=== PATIENT | female | born 1955 | race Caucasian/White ===

== ENCOUNTER 2016-12-10 07:51 | Day surgery (SDC) | payer BC ==
[2016-12-08 17:59] VITALS: BMI 34.0
[~2016-12-10 07:51] MED LIST: LACTATED RINGERS 1,000 ML IV SCH
[2016-12-10 08:21] VITALS: TEMP 98.1
[2016-12-10] MEDS ORDERED: LIDOCAINE 1% 20 ML VIAL (10MG/ML) FOR IV START INTRADERMA ONE (08:26)
[2016-12-10] MEDS ORDERED: LIDOCAINE 1% INJ 10MG/ML (20 ML MDV) ONE (08:42)
[2016-12-10] MEDS ORDERED: PROPOFOL 10 MG/ML 20 ML VIAL IV ONE (08:42)
--- NOTE | 2016-12-10 09:06 | P.PCN ---
Date of Procedure: 12/10/16 Procedure(s) Performed: Brief history: Patient is a pleasant scheduled for an elective upper endoscopy as well as colonoscopy as a part of evaluation of epigastric pain for the last 2 months duration. She was started on Prilosec 20 mg daily and symptoms and symptoms are gradually improving. She denies any heartburn, dysphagia or odynophagia. She is also scheduled for a screening colonoscopy today. Procedure performed: Esophagogastroduodenoscopy with biopsy Colonoscopy Preoperative diagnosis: Epigastric pain of 2 months duration Screening for colon cancer Anesthesia: MAC Procedure: After informed consent was obtained from the patient was brought into the endoscopy unit and IV conscious sedation was administered by anesthesia under continuous monitoring. Initially upper endoscopy was done. The Olympus GF 160 video endoscope was inserted inserted into the mouth and esophagus intubated without any difficulty and was gradually advanced into the stomach and duodenum and carefully examined. The bulb and second part of the duodenum appeared normal. The scope was then withdrawn into the stomach adequately insufflated with air and upon careful examination the antrum had mild mottling of the mucosa and biopsies were done from this area. The body, cardia and fundus appeared normal. The scope was then withdrawn into the esophagus. small sliding Hiatal hernia noted.The GE junction was located at 38 cm to the incisors. It appeared regular with no erythema erosions or ulcerations. Rest of the esophagus appeared normal. Patient tolerated the procedure well. At this time the patient continued to remain sedation. Initial digital rectal examination was normal. Olympus CF 160 video colonoscope was then inserted into the rectum and gradually advanced to the cecum without any difficulty. Careful examination was performed as the scope was gradually being withdrawn. The prep was excellent. The cecum, ascending colon, transverse colon, descending colon, sigmoid colon and rectum appeared normal. Retroflexion was performed in the rectum and no lesions were noted. Patient tolerated the procedure well. Impression: 1. Upper endoscopy revealed mild gastritis and a small hiatal hernia. 2. Colonoscopy revealed normal appearing colon from rectum to cecum with no evidence of colorectal neoplasia. Recommendations: Findings of this examination were discussed with the patient as well as her family. She was advised to follow with the biopsy results. She was advised to continue with Prilosec 10 mg daily and follow antireflux measures. She can have a repeat screening colonoscopy in 10 years.
[2016-12-10 09:42] VITALS: BP 98/67; PULSE 67; RESP 18
--- NOTE | 2016-12-12 08:14 | CDI ---
Dear Dr. Rudolph, The operative report under Anesthesia documents MAC (Monitored Anesthesia Care) was provided and in the first paragraph under Procedure IV Conscious sedation is documented. Also, on the Anesthesia Record under Technique, MAC is checked off. This is conflicting documentation that needs clarification for proper report purposes. Please clarify if the anesthesia provided Ender Jerome was Conscious sedation or MAC(Monitored Anesthesia Care). Please document this clarification as an addendum to the operative report. Thank you for your time, Erin Mccormick, [facility] Outpatient Train Crew Member Sahil [email or web address] MTDD
--- NOTE | 2016-12-19 07:55 | CDI ---
Dear Dr. Rudolph, The operative report under Anesthesia documents MAC (Monitored Anesthesia Care) was provided and in the first paragraph under Procedure IV Conscious sedation is documented. Also, on the Anesthesia Record under Technique, MAC is checked off. This is conflicting documentation that needs clarification for proper report purposes. Please clarify if the anesthesia provided Ender Pierre was Conscious sedation or MAC(Monitored Anesthesia Care). PLEASE DOCUMENT THIS CLARIFICATION AN ADDENDUM TO THE PROCEDURE NOTE. If you have any further questions. please contact Marcy Mcdonald at [phone] Thank you for your time, Erin Mccormick, [facility] Outpatient Lobster Fisherman [employer] [email or web address] MTDD
== END 2016-12-10 10:00 | disposition home or self-care (01) ==
LOC: ORWHC2ENDO 07:51
PROVIDERS: ATTEND Internal Medicine Gastroenterology
DX: Z12.11 Encounter for screening for malignant neoplasm of colon (principal); K21.9 Gastro-esophageal reflux disease without esophagitis; K44.9 Diaphragmatic hernia without obstruction or gangrene; K29.50 Unspecified chronic gastritis without bleeding; E78.5 Hyperlipidemia, unspecified; Z79.1 Long term (current) use of non-steroidal anti-inflammatories (NSAID); Z79.899 Other long term (current) drug therapy; Z88.8 Allergy status to other drugs, medicaments and biological substances; Z88.1 Allergy status to other antibiotic agents; Z91.040 Latex allergy status
CPT/HCPCS: 88305; 88342; 43239; J2001; J2704; G0121

== ENCOUNTER → 2017-10-12 | Outpatient (CLI) | payer BC ==
--- NOTE | 2017-10-13 09:20 | MM ---
Reason for exam: screening (asymptomatic). Last mammogram was performed 1 year and 3 months ago. History: Patient is postmenopausal. Took hormonal contraceptives for 5 years beginning at age 22. Took estrogen for 11 years beginning at age 42. Took progesterone for 11 years beginning at age 42. Took unspecified hormones for 1 year 6 months. Physical Findings: A clinical breast exam by your physician is recommended on an annual basis and results should be correlated with mammographic findings. MG Screening Mammo w CAD Bilateral CC and MLO view(s) were taken. Prior study comparison: July 22, 2016, bilateral MG screening mammo w CAD. June 29, 2015, bilateral MG screening mammo w CAD. There are scattered fibroglandular densities. Finding: There is a 5 mm mass in the central position of the right breast. ASSESSMENT: Incomplete: need additional imaging evaluation, BI-RAD 0 RECOMMENDATION: Special view mammogram of the right breast. If lesion persists on supplemental views, image directed ultrasound is recommended. [facility] will attempt to contact patient to return for supplemental views and ultrasound if indicated.
== END | disposition home or self-care (01) ==
LOC: RADMAMWWP 10:48
PROVIDERS: ATTEND Obstetrics & Gynecology
DX: Z12.31 Encounter for screening mammogram for malignant neoplasm of breast (principal)
CPT/HCPCS: 77067

== ENCOUNTER → 2017-10-22 | Outpatient (CLI) | payer BC ==
--- NOTE | 2017-10-23 09:25 | MM ---
Reason for exam: additional evaluation requested from abnormal screening. Last mammogram was performed less than 1 month ago. History: Patient is postmenopausal. Took hormonal contraceptives for 5 years beginning at age 22. Took estrogen for 11 years beginning at age 42. Took progesterone for 11 years beginning at age 42. Took unspecified hormones for 1 year 6 months. Physical Findings: Nurse did not find any significant physical abnormalities on exam. MG Work Up Mamm w CAD RT CC, MLO, LM, and spot compression MLO view(s) were taken of the right breast. Prior study comparison: October 12, 2017, bilateral MG screening mammo w CAD. July 22, 2016, bilateral MG screening mammo w CAD. June 29, 2015, bilateral MG screening mammo w CAD. January 18, 2014, bilateral digital screening mammo w/CAD. There are scattered fibroglandular densities. There is no discrete abnormality. The elongated asymmetry disperses on additional views. Findings suggest superimposed vessels. These results were verbally communicated with the patient and result sheet given to the patient on 10/22/17. ASSESSMENT: Negative, BI-RAD 1 RECOMMENDATION: Routine screening mammogram of both breasts in 1 year. Back on schedule, October 2018.
== END | disposition home or self-care (01) ==
LOC: RADMAMWWP 12:55
PROVIDERS: ATTEND Obstetrics & Gynecology
DX: R92.8 Other abnormal and inconclusive findings on diagnostic imaging of breast (principal)
CPT/HCPCS: 77065

== ENCOUNTER → 2018-10-28 | Outpatient (CLI) | payer BC ==
--- NOTE | 2018-10-31 14:34 | MM ---
Reason for exam: screening (asymptomatic). Last mammogram was performed 1 year ago. History: Patient is postmenopausal. Took hormonal contraceptives for 5 years beginning at age 22. Took estrogen for 11 years beginning at age 42. Took progesterone for 11 years beginning at age 42. Took unspecified hormones for 1 year 6 months. MG 3D Screening Mammo W/Cad Bilateral CC and MLO view(s) were taken. Prior study comparison: October 22, 2017, right breast MG work up mamm w CAD RT. October 12, 2017, bilateral MG screening mammo w CAD. There are scattered fibroglandular densities. No significant changes when compared with prior studies. ASSESSMENT: Negative, BI-RAD 1 RECOMMENDATION: Routine screening mammogram of both breasts in 1 year.
== END ==
LOC: RADMAMWWP 10:39
PROVIDERS: ATTEND Obstetrics & Gynecology
DX: Z12.31 Encounter for screening mammogram for malignant neoplasm of breast (principal)
CPT/HCPCS: 77063; 77067

== ENCOUNTER 2021-01-04 10:10 | Day surgery (SDC) | payer MEDICARE ==
[2021-01-02 12:06] VITALS: BMI 36.6
[2021-01-04 10:54] VITALS: RESP 16; TEMP 98.6
[2021-01-04] MEDS ORDERED: LIDOCAINE 1% (10MG/ML) FOR IV START INTRADERMA ONE (11:06)
[2021-01-04] MEDS ORDERED: PROPOFOL 10 MG/ML 20 ML VIAL IV ONE (11:19)
[2021-01-04] MEDS ORDERED: fentaNYL (PF) 50 MCG/ML 2 ML AMP ONE (11:19)
[2021-01-04] MEDS ORDERED: MIDAZOLAM 2 MG/2 ML VIAL ONE (11:19)
--- NOTE | 2021-01-04 11:44 | P.PCN ---
Date of Procedure: 01/04/21 Procedure(s) Performed: Brief history: Patient is a pleasant 65-year-old white female scheduled for an elective upper endoscopy as well as colonoscopy as a part of evaluation of I deficiency anemia. He complains of some epigastric discomfort. History of GERD and has been on Prilosec 20 mg daily. Procedure performed: Esophagogastroduodenoscopy with biopsy Colonoscopy and snare polypectomy Preoperative diagnosis: Iron deficiency anemia and epigastric pain Anesthesia: MAC Procedure: After informed consent was obtained from the patient was brought into the endoscopy unit and IV sedation was administered by anesthesia under continuous monitoring. Initially upper endoscopy was done. The Olympus GF 160 video endoscope was inserted inserted into the mouth and esophagus intubated without any difficulty and was gradually advanced into the stomach and duodenum and carefully examined. The bulb and second part of the duodenum appeared normal. Biopsies were done from the duodenum to rule out celiac disease. The scope was then withdrawn into the stomach adequately insufflated with air and upon careful examination the antrum had mild gastritis and biopsies were done from this area. The body, cardia and fundus appeared normal. The scope was then withdrawn into the esophagus. The GE junction was located at 40 cm to the incisors. It appeared regular with no erythema erosions or ulcerations. Rest of the esophagus appeared normal. Patient tolerated the procedure well. At this time the patient continued to remain sedation. Initial digital rectal examination was normal. Olympus CF 160 video colonoscope was then inserted into the rectum and gradually advanced to the cecum without any difficulty. Careful examination was performed as the scope was gradually being withdrawn. The prep was excellent. The cecum, appeared normal. In the ascending colon there was a 5 mm sessile polyp removed by snare polypectomy. In the hepatic flexure there was a 7 mm polyp removed by snare polypectomy. Rest of the ascending colon, transverse colon, descending colon, sigmoid colon and rectum appeared normal. Retroflexion was performed in the rectum and no lesions were noted. Patient tolerated the procedure well. Impression: 1 Upper endoscopy revealed mild antral gastritis but no evidence of esophagitis or peptic ulcer disease] 2. Colonoscopy revealed 5 mm ascending colon polyp and a 7 mm hepatic flexure polyp both of which were removed by snare polypectomy Recommendations: Findings of this examination were discussed with the patient as well as[ her family. She was advised to follow with the biopsy results. If the biopsy reveals adenoma she can have a repeat colonoscopy in 5 years
[2021-01-04 12:19] VITALS: BP 127/73; PULSE 79
== END 2021-01-04 12:56 | disposition home or self-care (01) ==
LOC: ORWHC2ENDO 10:10
PROVIDERS: ATTEND Internal Medicine Gastroenterology
DX: K63.5 Polyp of colon (principal); K63.89 Other specified diseases of intestine; D12.3 Benign neoplasm of transverse colon; K29.50 Unspecified chronic gastritis without bleeding; D50.9 Iron deficiency anemia, unspecified; K21.9 Gastro-esophageal reflux disease without esophagitis; E78.5 Hyperlipidemia, unspecified; M19.90 Unspecified osteoarthritis, unspecified site; Z79.899 Other long term (current) drug therapy; Z79.1 Long term (current) use of non-steroidal anti-inflammatories (NSAID); Z98.811 Dental restoration status; Z88.1 Allergy status to other antibiotic agents; Z88.6 Allergy status to analgesic agent; Z91.040 Latex allergy status; Z91.018 Allergy to other foods; Z96.653 Presence of artificial knee joint, bilateral; Z90.710 Acquired absence of both cervix and uterus
CPT/HCPCS: 88305; 45385; 43239; J2250; J3010; J2704

== ENCOUNTER → 2021-02-07 | Outpatient (CLI) | payer MEDICARE ==
--- NOTE | 2021-02-07 12:24 | US ---
EXAMINATION TYPE: US abdomen complete DATE OF EXAM: 02/07/2021 COMPARISON: NONE CLINICAL HISTORY: R10.13 Epigastric pain. Pt states epigastric pain and bloating post prandial EXAM MEASUREMENTS: Liver Length: 18.0 cm Gallbladder Wall: 0.2 cm CBD: 0.6 cm Spleen: 8.9 cm Right Kidney: 10.3 x 4.6 x 4.9 cm Left Kidney: 11.2 x 4.9 x 4.9 cm Pancreas: wnl, tail obscured by overlying bowel gas Liver: Enlarged, heterogeneous Gallbladder: wnl Evidence for sonographic Crawford's sign: No CBD: wnl Spleen: wnl Right Kidney: wnl, lobulated lower pole Left Kidney: wnl Upper IVC: wnl Abd Aorta: wnl The visualized liver is heterogeneously hyperechoic. No surrounding ascites. Evaluation for focal ma sses suboptimal due to the heterogeneity. Finding likely on the basis of diffuse fatty infiltration. Underlying hepatocellular disease are not excluded. Correlate clinically. The intrahepatic portion of the IVC and visualized abdominal aorta are within normal limits. There is no evidence of cholelithi asis. Common bile duct is unremarkable. The visualized portions of the pancreas are homogenous. Th e spleen is unremarkable. Kidneys are symmetric and free of hydronephrosis. No renal lesions are se en. IMPRESSION: No acute findings are evident.
== END | disposition home or self-care (01) ==
LOC: RADUSWWP 09:39
PROVIDERS: ATTEND Internal Medicine
DX: R10.13 Epigastric pain (principal)
CPT/HCPCS: 76700

== ENCOUNTER → 2021-03-06 | Outpatient (CLI) | payer MEDICARE ==
--- NOTE | 2021-03-06 14:22 | BD ---
EXAMINATION TYPE: Axial Bone Density DATE OF EXAM: 03/06/2021 COMPARISON: NONE CLINICAL HISTORY: Postmenopausal female Height: 59.5 IN Weight: 192 LBS FRAX RISK QUESTIONS: Secondary Osteoporosis: 3. Menopause before 45: PARTIAL HYST AGE 42 RISK FACTORS HISTORY OF: Active: YES Postmenopausal woman: PARTIAL HYST AGE 42 MEDICATIONS: Additional Medications: CALCIUM, VIT D, TYLENOL, CHOLESTEROL MEDS, MULTI VIT, OMEPRAZOLE EXAM MEASUREMENTS: Bone mineral densitometry was performed using the [employer] System. Bone mineral density as measured about the Lumbar spine is: ----- L1-L4(G/cm2): 1.082 T Score Values are as follows: ----- L2: -1.7 ----- L3: -1.0 ----- L4: -0.2 ----- L1-L4: -0.8 Bone mineral density BASELINE Bone mineral density about the R hip (g/cm2): 0.799 Bone mineral density about the L hip (g/cm2): 0.886 T Score values are as follows: -----R Neck: -1.7 -----L Neck: -1.1 -----R Total: -1.0 -----L Total: -0.4 Bone mineral density BASELINE IMPRESSION: Osteopenia (T Score between -2.5 and -1) femoral neck level in both hips. There is slightly increased risk of fracture and the patient may be considered for treatment. Re-Screen 2-5 years. NOTE: T-SCORE=SD OF THE YOUNG ADULT MEAN.
--- NOTE | 2021-03-08 15:00 | MM ---
Reason for exam: screening (asymptomatic). Last mammogram was performed 2 years and 4 months ago. History: Patient is postmenopausal. Took hormonal contraceptives for 5 years beginning at age 22. Took estrogen for 11 years beginning at age 42. Took progesterone for 11 years beginning at age 42. Took unspecified hormones for 1 year 6 months. Physical Findings: A clinical breast exam by your physician is recommended on an annual basis and results should be correlated with mammographic findings. MG 3D Screening Mammo W/Cad Bilateral CC and MLO view(s) were taken. Prior study comparison: October 28, 2018, bilateral MG 3d screening mammo w/cad. October 22, 2017, right breast MG work up mamm w CAD RT. There are scattered fibroglandular densities. ASSESSMENT: Benign, BI-RAD 2 RECOMMENDATION: Routine screening mammogram of both breasts in 1 year.
== END | disposition home or self-care (01) ==
LOC: RADMAMWWP 12:36
PROVIDERS: ATTEND Internal Medicine
DX: Z12.31 Encounter for screening mammogram for malignant neoplasm of breast (principal); Z13.820 Encounter for screening for osteoporosis; M85.89 Other specified disorders of bone density and structure, multiple sites; Z78.0 Asymptomatic menopausal state
CPT/HCPCS: 77063; 77067; 77080

== ENCOUNTER → 2022-10-14 | Outpatient (CLI) | payer MEDICARE ==
--- NOTE | 2022-10-14 12:28 | XR ---
EXAM TYPE: LUMBAR SPINE X RAY SERIES COMPARISON: NONE HISTORY: Low back pain TECHNIQUE: 4 views are submitted. FINDINGS: Alignment is anatomic. The pedicles are intact. The transverse processes are intact. There is no s pondylolysis or spondylolisthesis. Multilevel facet arthropathy with grade 1 anterolisthesis of L4 a nd L5. Severe from facet arthropathy L4-5 and L5-S1. Vacuum disc and severe degenerative changes L5-S 1 IMPRESSION: 1. Severe degenerative disease L5-S1. 2. Severe facet arthropathy L4-5 and L5-S1 with grade 1 spondylolisthesis L4 on L5 suspected foramina l encroachment at both levels.
== END | disposition home or self-care (01) ==
LOC: RADXRMAIN 12:07
PROVIDERS: ATTEND Internal Medicine
DX: M47.27 Other spondylosis with radiculopathy, lumbosacral region (principal); M43.17 Spondylolisthesis, lumbosacral region
CPT/HCPCS: 72100

== ENCOUNTER → 2022-10-30 | Outpatient (CLI) | payer MEDICARE ==
--- NOTE | 2022-10-31 11:14 | MM ---
Reason for Exam: Screening (asymptomatic). Last mammogram was performed 1 year(s) and 7 month(s) ago. Patient History: Menarche at age 11. First Full-Term at age 23. Hysterectomy at age 28. Postmenopausal. Patient has history of breast feeding. Estrogen, starting at age 42 for 11 years. Progesterone, starting at age 42 for 11 years. Hormonal Contraceptives for 5 years from age 22 until age 27. Unspecified Hormone for 1 year, 6 months. Risk Values: Mattie 5 year model risk: 1.5%. NCI Lifetime model risk: 5.0%. Prior Study Comparison: 07/22/2016 Bilateral Screening Mammogram, [facility]. 10/12/2017 Bilateral Screening Mammogram, [facility]. 10/22/2017 Right Diagnostic Mammogram, [facility]. 10/28/2018 Bilateral Screening Mammogram, [facility]. 03/06/2021 Bilateral Screening Mammogram, [facility]. Tissue Density: There are scattered fibroglandular densities. Findings: Analyzed By CAD. Prominent but benign-appearing left axillary lymph node is redemonstrated. There is no suspicious new group of microcalcifications or new suspicious mass in either breast. Overall Assessment: Benign, BI-RAD 2 Management: Screening Mammogram of both breasts in 1 year. A clinical breast exam by your physician is recommended on an annual basis and results should be correlated with mammographic findings. Electronically signed and approved by: Jesus Carrera M.D.
== END | disposition home or self-care (01) ==
LOC: RADMAMWWP 10:44
PROVIDERS: ATTEND Obstetrics & Gynecology
DX: Z12.31 Encounter for screening mammogram for malignant neoplasm of breast (principal); Z78.0 Asymptomatic menopausal state
CPT/HCPCS: 77063; 77067

== ENCOUNTER → 2024-08-25 | Outpatient (CLI) | payer MEDICARE ==
--- NOTE | 2024-08-25 20:56 | BD ---
EXAMINATION TYPE: Axial Bone Density DATE OF EXAM: 08/25/2024 CLINICAL HISTORY: 69 years old Female. ICD-10 CODE: Z78.0 ASYMPTOMATIC MENOPAUSAL STA , Additional History: Height: 59 Weight: 201 FRAX RISK QUESTIONS: Secondary Osteoporosis: RISK FACTORS HISTORY OF: MEDICATIONS: EXAM MEASUREMENTS: Bone mineral densitometry was performed using the [employer] System. Bone mineral density as measured about the Lumbar spine is: ----- L1-L4(G/cm2): 1.101 T Score Values are as follows: ----- L1: -0.5 ----- L2: -1.7 ----- L3: -1.0 ----- L4: 0.4 ----- L1-L4: -0.7 Z Score Values are as follows: ----- L1: 0.3 ----- L2: -0.9 ----- L3: -0.2 ----- L4: 1.2 ----- L1-L4: 0.1 Bone mineral density has: Increased 1.8% since study of: 03-06-21 Bone mineral density about the R hip (g/cm2): 0.899 Bone mineral density about the L hip (g/cm2): 0.954 T Score values are as follows: -----R Neck: -1.9 -----L Neck: -1.4 -----R Total: -0.9 -----L Total: -0.4 Z Score values are as follows: -----R Neck: -0.8 -----L Neck: -0.3 -----R Total: 0.0 -----L Total: 0.4 Bone mineral density has: Increased 0.5% since study of: 03-06-21 FRAX%s: The graph provided illustrates a 10.2% chance for a major osteoporotic fx and a 1.8% chance f or the hips probability for fx in 10 years time. IMPRESSION: Normal (Values between +1 and -1 indicate normal bone mass). Consider repeating this study in 5 year s or sooner if there is some new clinical indication. NOTE: T-SCORE=SD OF THE YOUNG ADULT MEAN. [facility], , 08/25/2024 8:54 PM
--- NOTE | 2024-08-29 08:23 | MM ---
Reason for Exam: Screening (asymptomatic). Last mammogram was performed 1 year(s) and 10 month(s) ago. Patient History: Menarche at age 11. First Full-Term at age 23. Hysterectomy at age 28. Postmenopausal. Patient has history of breast feeding. Estrogen, starting at age 42 for 11 years. Progesterone, starting at age 42 for 11 years. Hormonal Contraceptives for 5 years from age 22 until age 27. Unspecified Hormone for 1 year, 6 months. Risk Values: Mattie 5 year model risk: 1.5%. NCI Lifetime model risk: 4.5%. Prior Study Comparison: 10/28/2018 Bilateral Screening Mammogram, [facility]. 03/06/2021 Bilateral Screening Mammogram, [facility]. 10/30/2022 Bilateral MG 3D screening mammo w/cad, [facility]. Tissue Density: The breasts are heterogeneously dense, which may obscure small masses. Findings: Analyzed By CAD. There is no suspicious group of microcalcifications or new suspicious mass in either breast. Stable appearing benign calcifications and lymph nodes in the axilla. Overall Assessment: Benign, BI-RAD 2 Management: Screening Mammogram of both breasts in 1 year. . Patient should continue monthly self-breast exams. A clinical breast exam by your physician is recommended on an annual basis. This exam should not preclude additional follow-up of suspicious palpable abnormalities. Note on Mattie scores and lifetime risk: 1. A Mattie score greater than 3% is considered moderate risk. If this is the case, consider specialist referral to assess eligibility for a risk reducing agent. 2. If overall lifetime risk for the development of breast cancer is 20% or higher, the patient may qualify for future screening with alternating mammogram and breast MRI. [facility], , 08/29/2024 8:21 AM. Electronically signed and approved by: Lalo Funk M.D. [facility]
== END | disposition home or self-care (01) ==
LOC: RADMAMWWP 10:43
PROVIDERS: ATTEND Internal Medicine
DX: Z12.31 Encounter for screening mammogram for malignant neoplasm of breast (principal); M81.8 Other osteoporosis without current pathological fracture; Z78.0 Asymptomatic menopausal state; R92.333 Mammographic heterogeneous density, bilateral breasts
CPT/HCPCS: 77063; 77067; 77080

== ENCOUNTER 2025-04-05 09:04 | Emergency (ER) | payer MEDICARE ==
[2025-04-05] MEDS: DICYCLOMINE 20 MG TAB PO STA (10:01)
[2025-04-05] MEDS: SODIUM CHLORIDE 0.9% 1,000 ML IV STA (10:01)
--- NOTE | 2025-04-05 10:21 | ED ---
General Adult HPI - General Chief complaint: GI Bleed Stated complaint: Abd Pain Time Seen by Provider: 04/05/25 09:20 Source: patient, RN notes reviewed Mode of arrival: ambulatory Limitations: no limitations - History of Present Illness Initial comments: 69-year-old female presents emergency department with chief complaint of abdominal pain. Patient states she has been having ongoing abdominal pain for years but usually passes easily associated with eating certain foods. She states she not eat any other typical foods that bother her. Patient states pain is worsening and is not alleviated after 24 hours. Patient states that she did have vomiting this morning noticed some bright red blood. She does have a history of hemorrhoids denies any blood thinners no chest pain no shortness of breath no urinary symptoms. - Related Data Home Medications Medication Instructions Recorded Confirmed Acetaminophen Tab [Tylenol Tab] 1,000 mg PO BID 12/08/16 01/04/21 Cholecalciferol [Vitamin D3] 50 mcg PO BID 12/08/16 01/04/21 Naproxen Sodium [Aleve] 220 mg PO BID 12/08/16 01/04/21 Omeprazole 40 mg PO DAILY 12/08/16 01/04/21 Sennosides/Docusate Sodium 1 tab PO BID 12/08/16 01/04/21 [Docusate Sodium-Senna Tablet] Atorvastatin [Lipitor] 40 mg PO HS 01/02/21 01/04/21 Fenofibrate 54 mg PO DAILY 01/02/21 01/04/21 Ubidecarenone [Co Q-10] 200 mg PO BID 01/02/21 01/04/21 Previous Rx's Medication Instructions Recorded Amoxic-Pot Clav 875-125Mg 1 tab PO Q12HR #20 tab 04/05/25 [Augmentin 875-125] Allergies Allergy/AdvReac Type Severity Reaction Status Date / Time cephalexin [From Keflex] Allergy Itching Verified 04/05/25 09:12 etodolac [From Lodine] Allergy Itching Verified 04/05/25 09:12 latex Allergy Rash/Hives Verified 04/05/25 09:12 red (food color) Allergy Itching Verified 04/05/25 09:12 strawberry Allergy Itching Verified 04/05/25 09:12 BLACKBERRIES Allergy COLD SORES Uncoded 04/05/25 09:12 ON MOUTH RED #40 Allergy Itching Uncoded 04/05/25 09:12 Review of Systems ROS Statement: Those systems with pertinent positive or pertinent negative responses have been documented in the HPI. ROS Other: All systems not noted in ROS Statement are negative. Past Medical History Past Medical History: GERD/Reflux Additional Past Medical History / Comment(s): drop in hgb over 6 months,ABD PAIN, VOMITING EPISODES . CHRONIC CONSTIPATION. LEG CRAMPS. OCC VERTIGO. History of Any Multi-Drug Resistant Organisms: None Reported Past Surgical History: Hysterectomy, Joint Replacement, Tonsillectomy, Tubal Ligation Additional Past Surgical History / Comment(s): TOTAL KNEES DORIAN 2013. COLONOSC OPY. Past Anesthesia/Blood Transfusion Reactions: No Reported Reaction Past Psychological History: No Psychological Hx Reported Smoking Status: Never smoker Past Alcohol Use History: None Reported Past Drug Use History: None Reported - Past Family History Mother Family Medical History: Cancer Father Family Medical History: Cancer Additional Family Medical History / Comment(s): colon General Exam Limitations: no limitations General appearance: alert, in no apparent distress Head exam: Present: atraumatic, normocephalic, normal inspection ENT exam: Present: normal exam, mucous membranes moist Neck exam: Present: normal inspection, full ROM. Absent: tenderness, meningismus, lymphadenopathy Respiratory exam: Present: normal lung sounds bilaterally. Absent: respiratory distress, wheezes, rales, rhonchi, stridor Cardiovascular Exam: Present: regular rate, normal rhythm, normal heart sounds. Absent: systolic murmur, diastolic murmur, rubs, gallop, clicks GI/Abdominal exam: Present: soft, tenderness, normal bowel sounds. Absent: distended, guarding, rebound, rigid Course Vital Signs 04/05/25 04/05/25 09:09 12:25 Temperature 98.2 F 98.0 F Pulse Rate 125 H 69 Respiratory 20 16 Rate Blood Pressure 170/88 128/82 O2 Sat by Pulse 98 96 Oximetry EKG Findings - EKG Comments: EKG Findings:: EKG performed at 9: 48 sinus rhythm rate 63 MT 177 QRS 88 QT/QTc 367/373 - EKG Results: EKG: interpreted by [facility] Medical Decision Making - Medical Decision Making Was pt. sent in by a medical professional or institution (, PA, [employer]NAGER, urgent care, hospital, or senior care...) When possible be specific @ -No Did you speak to anyone other than the patient for history (EMS, parent, family, police, friend...)? What history was obtained from this source @ -No Did you review nursing and triage notes (agree or disagree)? Why? @ -I reviewed and agree with nursing and triage notes Were old charts reviewed (outside hosp., previous admission, EMS record, old EKG, old radiological studies, urgent care reports/EKG's, senior care records)? Report findings @ -No old charts were reviewed Differential Diagnosis (chest pain, altered mental status, abdominal pain women, abdominal pain men, vaginal bleeding, weakness, fever, dyspnea, syncope, headache, dizziness, GI bleed, back pain, seizure, CVA, palpatations, mental health, musculoskeletal)? @ -Differential Abdominal Pain Women: Appendicitis, Cholecystitis, diverticulosis, ischemic bowel, pancreatitis, hepatitis, UTI, gastroenteritis, AAA, incarcerated hernia, bowel obstruction, constipation, inflammatory bowel, hepatitis, peptic ulcer disease, splenic infarction, perforated viscus, vulvitis, ovarian torsion, PID, kidney stone, placenta abruption, this is not meant to be an all-inclusive list EKG interpreted by me (3pts min.). @ -None X-rays interpreted by me (1pt min.). @ -None done CT interpreted by me (1pt min.). @ -CT abdomen pelvis showing evidence of colitis, diverticulitis mild no perforation or abscess. U/S interpreted by me (1pt. min.). @ -None done What testing was considered but not performed or refused? (CT, X-rays, U/S, labs)? Why? @ -None What meds were considered but not given or refused? Why? @ -None Did you discuss the management of the patient with other professionals (professionals i.e. , PA, [employer] MANAGER, lab, RT, psych nurse, psych social worker, ultrasonic solderer, teacher, business banking officer, major case detective)? Give summary @ -No Was smoking cessation discussed for >3mins.? @ -No Was critical care preformed (if so, how long)? @ -No Were there social determinants of health that impacted care today? How? (Homelessness, low income, unemployed, alcoholism, drug addiction, transportation, low edu. Level, literacy, decrease access to med. care, prison, rehab)? @ -No Was there de-escalation of care discussed even if they declined (Discuss DNR or withdrawal of care, Hospice)? DNR status @ -No What co-morbidities impacted this encounter? (DM, HTN, Smoking, COPD, CAD, Cancer, CVA, ARF, Chemo, Hep., AIDS, mental health diagnosis, sleep apnea, morbid obesity)? @ -None Was patient admitted / discharged? Hospital course, mention meds given and route, prescriptions, significant lab abnormalities, going to OR and other pertinent info. @Discharge labs are essentially unremarkable. CT did show colitis, diverticulitis. Patient is comfortable discharge with oral antibiotics close follow-up clear liquid diet strict return parameters were discussed. Undiagnosed new problem with uncertain prognosis? @ -No Drug Therapy requiring intensive monitoring for toxicity (Heparin, Nitro, Insulin, Cardizem)? @ -No Were any procedures done? @ -No Diagnosis/symptom? @ -Colitis/diverticulitis Acute, or Chronic, or Acute on Chronic? @ -Acute Uncomplicated (without systemic symptoms) or Complicated (systemic symptoms)? @ -Complicated Side effects of treatment? @ -No Exacerbation, Progression, or Severe Exacerbation? @ -No Poses a threat to life or bodily function? How? (Chest pain, [place], [place], pneumonia, PE, COPD, DKA, ARF, appy, cholecystitis, CVA, Diverticulitis, Homicidal, Suicidal, threat to staff... and all critical care pts) @ -No - Lab Data Result diagrams: 04/05/25 09:59 04/05/25 09:59 Lab Results 04/05/25 04/05/25 04/05/25 Range/Units 09:59 09:59 09:59 WBC 8.82 (4.50-10.00) 10*3/uL RBC 4.42 (4.10-5.20) 10*6/uL Hgb 13.3 (12.0-15.0) g/dL Hct 40.6 (37.2-46.3) % MCV 91.9 (80.0-97.0) fL MCH 30.1 (27.0-32.0) pg MCHC 32.8 (32.0-37.0) g/dL Plt Count 252 (140-440) 10*3/uL MPV 10.8 (9.5-12.2) fL Immature Gran % (Auto) 0.3 % Neutrophils % 70.0 % Lymphocytes % 18.0 % Monocytes % 10.3 % Eosinophils % 1.1 % Basophils % 0.3 % Immature Gran # 0.03 (0.00-0.04) 10*3/uL Neutrophils # 6.16 (1.80-7.70) 10*3/uL Lymphocytes # 1.59 (0.90-5.00) 10*3/uL Monocytes # 0.91 (0.20-1.00) 10*3/uL Eosinophils # 0.10 (0.04-0.35) 10*3/uL Basophils # 0.03 (0.00-0.10) 10*3/uL PT 10.9 (10.0-12.5) sec INR 1.0 (<1.2) APTT 24.5 (22.0-30.0) sec Sodium 141 (137-145) mmol/L Potassium 3.9 (3.5-5.1) mmol/L Chloride 104 (98-107) mmol/L Carbon Dioxide 24 (22-30) mmol/L Anion Gap 13 mmol/L BUN 13 (7-17) mg/dL Creatinine 0.57 (0.52-1.04) mg/dL Est GFR (CKD-EPI)AfAm >90 (>60 ml/min/1.73 sqM) Est GFR (CKD-EPI)NonAf >90 (>60 ml/min/1.73 sqM) Glucose 105 H (74-99) mg/dL Plasma Lactic Acid Gerson (0.7-2.0) mmol/L Calcium 10.1 (8.4-10.2) mg/dL Magnesium 2.0 (1.6-2.3) mg/dL Total Bilirubin 0.8 (0.2-1.3) mg/dL AST 38 H (14-36) U/L ALT 53 H (4-34) U/L Alkaline Phosphatase 88 (38-126) U/L Total Protein 7.4 (6.3-8.2) g/dL Albumin 4.6 (3.5-5.0) g/dL Lipase 74 (23-300) U/L 04/05/25 Range/Units 09:59 WBC (4.50-10.00) 10*3/uL RBC (4.10-5.20) 10*6/uL Hgb (12.0-15.0) g/dL Hct (37.2-46.3) % MCV (80.0-97.0) fL MCH (27.0-32.0) pg MCHC (32.0-37.0) g/dL Plt Count (140-440) 10*3/uL MPV (9.5-12.2) fL Immature Gran % (Auto) % Neutrophils % % Lymphocytes % % Monocytes % % Eosinophils % % Basophils % % Immature Gran # (0.00-0.04) 10*3/uL Neutrophils # (1.80-7.70) 10*3/uL Lymphocytes # (0.90-5.00) 10*3/uL Monocytes # (0.20-1.00) 10*3/uL Eosinophils # (0.04-0.35) 10*3/uL Basophils # (0.00-0.10) 10*3/uL PT (10.0-12.5) sec INR (<1.2) APTT (22.0-30.0) sec Sodium (137-145) mmol/L Potassium (3.5-5.1) mmol/L Chloride (98-107) mmol/L Carbon Dioxide (22-30) mmol/L Anion Gap mmol/L BUN (7-17) mg/dL Creatinine (0.52-1.04) mg/dL Est GFR (CKD-EPI)AfAm (>60 ml/min/1.73 sqM) Est GFR (CKD-EPI)NonAf (>60 ml/min/1.73 sqM) Glucose (74-99) mg/dL Plasma Lactic Acid Gerson 1.4 (0.7-2.0) mmol/L Calcium (8.4-10.2) mg/dL Magnesium (1.6-2.3) mg/dL Total Bilirubin (0.2-1.3) mg/dL AST (14-36) U/L ALT (4-34) U/L Alkaline Phosphatase (38-126) U/L Total Protein (6.3-8.2) g/dL Albumin (3.5-5.0) g/dL Lipase (23-300) U/L Disposition Clinical Impression: Diverticulitis, Colitis Disposition: HOME SELF-CARE Condition: Stable Instructions (If sedation given, give patient instructions): Colitis (ED) Additional Instructions: Please return to the Emergency Department if symptoms worsen or any other concerns. Prescriptions: Amoxic-Pot Clav 875-125Mg [Augmentin 875-125] 1 tab PO Q12HR #20 tab Is patient prescribed a controlled substance at d/c from ED?: No Referrals: Michaelle Cote MD [Primary Care Provider] - 1-2 days Time of Disposition: 11:50
[2025-04-05 10:24] LABS: Basophils # (A) 0.03 10*3/uL (0.00-0.10); Basophils % (A) 0.3 %; Eosinophils # (A) 0.10 10*3/uL (0.04-0.35); Eosinophils % (A) 1.1 %; HCT 40.6 % (37.2-46.3); HGB 13.3 g/dL (12.0-15.0); Lymphocytes # (A) 1.59 10*3/uL (0.90-5.00); Lymphocytes % (A) 18.0 %; MCH 30.1 pg (27.0-32.0); MCHC 32.8 g/dL (32.0-37.0); MCV 91.9 fL (80.0-97.0); Monocytes # (A) 0.91 10*3/uL (0.20-1.00); Monocytes % (A) 10.3 %; Neutrophils # (A) 6.16 10*3/uL (1.80-7.70); Neutrophils % (A) 70.0 %; Platelet Count 252 10*3/uL (140-440); RBC 4.42 10*6/uL (4.10-5.20); RDW 13.4 % (11.5-14.5); WBC 8.82 10*3/uL (4.50-10.00)
[2025-04-05 10:33] LABS: INR 1.0 (<1.2); Partial Thromboplastin Time 24.5 sec (22.0-30.0); Prothrombin Time 10.9 sec (10.0-12.5)
[2025-04-05 10:38] LABS: ALT 53 U/L (4-34); AST 38 U/L (14-36); African American GFR (CKD) >90 (>60 ml/min/1.73 sqM); Albumin 4.6 g/dL (3.5-5.0); Alkaline Phosphatase 88 U/L (38-126); Anion Gap 13 mmol/L; Blood Urea Nitrogen 13 mg/dL (7-17); Calcium 10.1 mg/dL (8.4-10.2); Carbon Dioxide 24 mmol/L (22-30); Chloride 104 mmol/L (98-107); Glucose 105 mg/dL (74-99); Lipase 74 U/L (23-300); Magnesium 2.0 mg/dL (1.6-2.3); Non-African American GFR(CKD) >90 (>60 ml/min/1.73 sqM); Potassium 3.9 mmol/L (3.5-5.1); Sodium 141 mmol/L (137-145); Total Protein 7.4 g/dL (6.3-8.2)
--- NOTE | 2025-04-05 11:29 | CT ---
EXAMINATION TYPE: CT abdomen pelvis w con DATE OF EXAM: 04/05/2025 11:16 AM COMPARISON: None. CLINICAL INDICATION: Female, 69 years old with history of pain, Abdominal pain with diarrhea and cram ping TECHNIQUE:CT scan of the abdomen and pelvis is performed without Oral Contrast and with IV Contrast, patient injected with 100 ml mL of Isovue 300. CT DLP: 1492.4 mGycm, Automated exposure control for dose reduction was used. FINDINGS: LUNG BASES-: No visible nodule. No infiltrate. LIVER/GB: No calcified gallstones. There is evidence of hepatic steatosis with hepatomegaly. No sp bobby occupying hepatic lesion. Biliary tree is of normal caliber. PANCREAS: No inflammation. No distinct mass. SPLEEN: No splenic enlargement. No lesion seen. ADRENALS: No nodule. No thickening. KIDNEYS/BLADDER: No hydronephrosis. No nephrolithiasis. No distinct renal mass. Urinary bladder g rossly unremarkable. BOWEL: Normal appendix. Normal bowel caliber. Mild inflammatory change surrounds the distal descendi ng colon without reflect colitis or mild diverticulitis. No evidence of perforation or free air. Mild wall thickening noted. GENITAL ORGANS: No gross abnormality. LYMPH NODES: No greater than 1cm abdominal or pelvic lymph nodes are appreciated. AORTA: No significant abnormality. OSSEOUS STRUCTURES: No significant abnormality is seen. OTHER: No significant additional abnormality is seen. IMPRESSION: 1. Mild inflammatory change surrounds the distal descending colon without reflect colitis or mild div erticulitis. No evidence of perforation or free air. Mild wall thickening noted. 2. Hepatomegaly with underlying hepatic steatosis. [facility], , 04/05/2025 11:26 AM
[2025-04-05 15:43] VITALS: BP 128/82; PULSE 69; RESP 16; TEMP 98
== END 2025-04-05 12:25 | disposition home or self-care (01) ==
LOC: EC 09:04
DX: K57.32 Diverticulitis of large intestine without perforation or abscess without bleeding (principal); K52.9 Noninfective gastroenteritis and colitis, unspecified; Z88.1 Allergy status to other antibiotic agents; Z91.040 Latex allergy status; Z91.018 Allergy to other foods; Z91.048 Other nonmedicinal substance allergy status
CPT/HCPCS: 36415; 93005; 80053; 83605; 83690; 83735; 85025; 85610; 85730; 74177; 99284; 96360; Q9967